=== PATIENT | male | born 1955 | race Caucasian/White ===

== ENCOUNTER 2018-09-06 07:34 | Day surgery (SDC) | payer MEDICARE, BC ==
[~2018-09-06] VITALS: Ht 190.5 cm; Wt 151.9 kg
[2018-09-06] VITALS (16 sets, daily range): BP systolic 97–166; BP diastolic 41–96
[2018-09-06] MEDS ORDERED: fentaNYL/PF 50MCG/1 ML 2ML syringe IV ONE (08:10)
[2018-09-06] MEDS ORDERED: MIDAZolam 5mg/ml 2ml vial IV ONE (08:10)
[2018-09-06] MEDS ORDERED: normal saline 1000ml 1,000 ML IV SCH (08:10)
[2018-09-06 08:48] LABS: BASOPHILS # (AUTO) 0.1 X10'3 (0-0.2); BASOPHILS % (AUTO) 0.8 % (0-1); EOSINOPHILS # (AUTO) 0.3 X10'3 (0-0.9); EOSINOPHILS % (AUTO) 2.6 % (0-6); HEMATOCRIT 49.1 % (42.0-52.0); HEMOGLOBIN 16.7 g/dl (14.0-17.9); LYMPHOCYTES # (AUTO) 2.7 X10'3 (1.1-4.8); LYMPHOCYTES % (AUTO) 25.7 % (21-51); MEAN CORPUSCULAR HEMOGLOBIN 30.9 PG (27.0-31.0); MEAN CORPUSCULAR HGB CONC 34.1 g/dL (33.0-36.5); MEAN CORPUSCULAR VOLUME 90.5 FL (78-98); MEAN PLATELET VOLUME 8.3 FL (7.4-10.4); MONOCYTES # (AUTO) 0.6 X10'3 (0-0.9); MONOCYTES % (AUTO) 5.4 % (2-12); NEUTROPHILS % (AUTO) 65.5 % (42-75); PLATELET COUNT 240 X10'3 (140-440); RED BLOOD COUNT 5.42 X10'6 (4.70-6.10); RED CELL DISTRIBUTION WIDTH 15.2 % (11.5-14.5); WHITE BLOOD COUNT 10.7 X10'3 (4.5-11.0)
[2018-09-06 09:09] LABS: ALBUMIN 4.1 G/DL (3.4-5.0); ANION GAP 13 (8-16); BLOOD UREA NITROGEN 20 MG/DL (7-18); BUN/CREATININE RATIO 21.1 (5.4-32.0); CALCIUM 10.3 MG/DL (8.5-10.1); CHLORIDE 103 MMOL/L (99-107); CREATININE 0.95 MG/DL (0.60-1.10); GLUCOSE 91 MG/DL (70-104); MAGNESIUM 1.6 MG/DL (1.5-2.4); SODIUM 141 MMOL/L (135-145); TOTAL CARBON DIOXIDE 25.1 MMOL/L (24-32); eGFR 80 ML/MIN
[2018-09-06 09:10] LABS: INR 1.2 INR; PROTHROMBIN TIME 11.8 SECONDS (9.0-12.0)
[2018-09-06] MEDS ORDERED: ATOR40TA PO (09:14)
[2018-09-06] MEDS ORDERED: ALBU8.5H8 INH (09:14)
[2018-09-06] MEDS ORDERED: RIVA20TA PO (09:14)
[2018-09-06] MEDS ORDERED: MONT10TA21 PO (09:14)
[2018-09-06] MEDS ORDERED: CARV-50 PO (09:14)
[2018-09-06] MEDS ORDERED: FLUT1DIS4 INH (09:14)
[2018-09-06] MEDS ORDERED: METF500T PO (09:14)
[2018-09-06] MEDS ORDERED: DIO160T PO (09:14)
[2018-09-06] MEDS ORDERED: HYDR-4353 PO (09:14)
[2018-09-06] MEDS ORDERED: DOFE500C PO (09:14)
[2018-09-06] MEDS ORDERED: AMLO2.5T2 PO (09:14)
[2018-09-06] MEDS ORDERED: GLYB5TAB7 PO (09:14)
[2018-09-06] MEDS ORDERED: FURO-150 PO (09:14)
== END 2018-09-06 11:37 | disposition home or self-care (01) ==
LOC: SSTAY O 07:34
PROVIDERS: ATTEND Internal Medicine Cardiovascular Disease
DX: I48.0 Paroxysmal atrial fibrillation (principal); Z53.8 Procedure and treatment not carried out for other reasons; I48.3 Typical atrial flutter; I45.81 Long QT syndrome; I42.8 Other cardiomyopathies; E78.5 Hyperlipidemia, unspecified; I10 Essential (primary) hypertension; E11.9 Type 2 diabetes mellitus without complications; E66.01 Morbid (severe) obesity due to excess calories; I45.9 Conduction disorder, unspecified; J44.9 Chronic obstructive pulmonary disease, unspecified; F17.210 Nicotine dependence, cigarettes, uncomplicated; J45.998 Other asthma; Z95.0 Presence of cardiac pacemaker; Z88.1 Allergy status to other antibiotic agents; Z68.41 Body mass index [BMI] 40.0-44.9, adult; Z72.89 Other problems related to lifestyle; Z89.202 Acquired absence of left upper limb, unspecified level; Z79.891 Long term (current) use of opiate analgesic; Z79.84 Long term (current) use of oral hypoglycemic drugs; Z79.899 Other long term (current) drug therapy; Z98.890 Other specified postprocedural states
CPT/HCPCS: 36415; 80048; 82948; 83735; 85025; 85610; 93005; J2250; J3010; J7030

== ENCOUNTER 2019-11-30 08:15 | Day surgery (SDC) | payer MEDICARE, BC ==
[~2019-11-30] VITALS: Ht 188 cm; Wt 147.2 kg
[2019-11-30] VITALS (11 sets, daily range): BP systolic 111–160; BP diastolic 74–97
[~2019-11-30 08:15] MED LIST: ALBU8.5H8 INH; AMLO2.5T2 PO; ATOR40TA PO; CARV-50 PO; DIO160T PO; DOFE500C PO; FLUT1DIS4 INH; FURO-150 PO; GLYB5TAB7 PO; HYDR-4353 PO; METF500T PO; MONT10TA21 PO; RIVA20TA PO
[2019-11-30] MEDS ORDERED: fentaNYL/PF 50MCG/1 ML 2ML syringe IV ONE (08:45)
[2019-11-30] MEDS ORDERED: normal saline 1000ml 1,000 ML IV SCH (08:45)
[2019-11-30] MEDS ORDERED: MIDAZolam 1mg/ml 10ml vial IV ONE (08:45)
[2019-11-30] MEDS ORDERED: normal saline 1000ml 1,000 ML IV PRN (09:10)
[2019-11-30] MEDS ORDERED: MIDAZolam 1mg/ml 10ml vial IV PRN (09:10)
[2019-11-30] MEDS ORDERED: fentaNYL/PF 50MCG/1 ML 2ML syringe IV PRN (09:10)
[2019-11-30] MEDS ORDERED: GLIP10TA11 PO (09:13)
[2019-11-30] MEDS ORDERED: GABA-532 PO (09:13)
[2019-11-30] MEDS ORDERED: BACL-11 PO (09:13)
[2019-11-30] MEDS ORDERED: MONT10TA21 PO (09:13)
[2019-11-30 10:10] LABS: BASOPHILS # (AUTO) 0.1 X10'3 (0-0.2); BASOPHILS % (AUTO) 1.2 % (0-1); EOSINOPHILS # (AUTO) 0.6 X10'3 (0-0.9); EOSINOPHILS % (AUTO) 6.4 % (0-6); HEMOGLOBIN 15.2 g/dl (14.0-17.9); LYMPHOCYTES # (AUTO) 2.5 X10'3 (1.1-4.8); LYMPHOCYTES % (AUTO) 27.6 % (21-51); MEAN CORPUSCULAR HEMOGLOBIN 29.9 PG (27.0-31.0); MEAN CORPUSCULAR HGB CONC 33.7 g/dL (33.0-36.5); MEAN CORPUSCULAR VOLUME 88.8 FL (78-98); MEAN PLATELET VOLUME 8.4 FL (7.4-10.4); MONOCYTES # (AUTO) 0.7 X10'3 (0-0.9); MONOCYTES % (AUTO) 7.9 % (2-12); NEUTROPHILS # (AUTO) 5.2 X10'3 (1.8-7.7); NEUTROPHILS % (AUTO) 56.9 % (42-75); PLATELET COUNT 227 X10'3 (140-440); RED BLOOD COUNT 5.07 X10'6 (4.70-6.10); RED CELL DISTRIBUTION WIDTH 15.4 % (11.5-14.5); WHITE BLOOD COUNT 9.2 X10'3 (4.5-11.0)
[2019-11-30 10:45] LABS: ALBUMIN 3.6 G/DL (3.4-5.0); ANION GAP 10 (8-16); BLOOD UREA NITROGEN 18 MG/DL (7-18); BUN/CREATININE RATIO 19.4 (5.4-32.0); CALCIUM 10.1 MG/DL (8.5-10.1); CHLORIDE 105 MMOL/L (99-107); CREATININE 0.93 MG/DL (0.60-1.10); GLUCOSE 109 MG/DL (70-104); MAGNESIUM 1.5 MG/DL (1.5-2.4); SODIUM 139 MMOL/L (135-145); TOTAL CARBON DIOXIDE 24.5 MMOL/L (24-32); eGFR 81 ML/MIN
== END 2019-11-30 12:10 | disposition home or self-care (01) ==
LOC: MED 3N 08:15 → U 08:15
PROVIDERS: ATTEND Internal Medicine Cardiovascular Disease
DX: I48.3 Typical atrial flutter (principal); I48.0 Paroxysmal atrial fibrillation; I42.9 Cardiomyopathy, unspecified; I45.9 Conduction disorder, unspecified; E78.5 Hyperlipidemia, unspecified; I10 Essential (primary) hypertension; E11.9 Type 2 diabetes mellitus without complications; J44.9 Chronic obstructive pulmonary disease, unspecified; E66.01 Morbid (severe) obesity due to excess calories; Z68.41 Body mass index [BMI] 40.0-44.9, adult; F17.200 Nicotine dependence, unspecified, uncomplicated; Z88.1 Allergy status to other antibiotic agents; Z95.0 Presence of cardiac pacemaker; Z79.84 Long term (current) use of oral hypoglycemic drugs; Z79.899 Other long term (current) drug therapy
CPT/HCPCS: 36415; 80048; 83735; 85025; 85610; 92960; J2250; J3010; J7030; 93005